=== PATIENT | female | born 1935 | race Asian ===

== ENCOUNTER 2017-09-15 18:49 | Emergency (ER) | payer MEDICARE, OTHER ==
[~2017-09-15] VITALS: Ht 149.9 cm; Wt 40.9 kg
[2017-09-15] MEDS ORDERED: ATROPINE SULFATE 0.1 MG/ML 10 ML SYRINGE IVP ONE (18:51)
[2017-09-15] MEDS ORDERED: SODIUM BICARBONATE [ADULT] 8.4% 50 MEQ/50 ML SYRINGE IVP ONE ×2 (18:51)
[2017-09-15] MEDS ORDERED: EPINEPHrine 1:10,000 [1 MG/10 ML] SYRINGE IVP ONE ×2 (18:51)
[2017-09-15] MEDS ORDERED: ONDANSETRON HCL 4 MG/2 ML VIAL IVP ONE (19:45)
[2017-09-15] MEDS ORDERED: MORPHINE SULFATE 4 MG/ML SYRINGE IVP ONE (19:45)
[2017-09-15] MEDS ORDERED: PIPERACILLIN/TAZO 3.375 GM/D5W 50 ML IV ONE (20:00)
[2017-09-15] MEDS ORDERED: RAPID SEQUENCE KIT [RSI] 1 EACH KIT ONE (20:06)
[2017-09-15] MEDS ORDERED: SUCCINYLCHOLINE CHLORIDE 20 MG/ML 10 ML VIAL ONE (20:06)
[2017-09-15] MEDS ORDERED: NALOXONE HCL 1 MG/ML 2 ML SYG ONE (20:07)
[2017-09-15] MEDS ORDERED: NOREPINEPHRINE 4 MG/D5%-WATER 250 ML IV ONE (20:11)
[2017-09-15 20:16] LABS: RED BLOOD CELL COUNT(AUTO) 1.58 MIL/uL (4.00-5.20)
[2017-09-15 20:17] LABS: PLATELET COUNT (AUTO) 198 K/uL (150-450); RED CELL DISTRIBUTION WIDTH 30.2 % (11.5-14.5)
[2017-09-15] MEDS ORDERED: MIDAZOLAM HCL 2 MG/2 ML VIAL IVP ONE ×3 (20:30→23:45)
[2017-09-15] MEDS ORDERED: NALOXONE HCL 1 MG/ML 2 ML SYG IVP ONE (20:30)
[2017-09-15 20:34] VITALS: BP 147/95
[2017-09-15 20:35] LABS: MEAN CORPUSCULAR VOLUME 49 fL (80-100)
[2017-09-15 20:36] LABS: TROPONIN I 0.16 ng/mL (0.00-0.05)
[2017-09-15] MEDS ORDERED: SODIUM CHLORIDE 0.9% 100 ML ONE (20:43)
[2017-09-15] MEDS ORDERED: IOVERSOL 350 MG/ML 100 ML VIAL ONE (20:43)
[2017-09-15 20:51] LABS: CALCIUM, TOTAL 9.4 mg/dL (8.8-10.5); CHLORIDE 98 mmol/L (98-107); GLUCOSE,RANDOM 79 mg/dL (70-110); POTASSIUM 4.4 mmol/L (3.5-5.1)
[2017-09-15 20:52] LABS: ALBUMIN 0.6 g/dL (3.4-5.0); BAND NEUTROPHILS % (MANUAL) 21 % (0-5); CORRECTED WHITE BLOOD COUNT 20.7 K/uL (4.5-11.0); LYMPHOCYTES % (MANUAL) 23 % (22-44); MONOCYTES % (MANUAL) 7 % (2-9); SEGMENTED NEUTROPHILS % 49 % (40-70); TOTAL PROTEIN, SERUM 8.7 g/dL (6.4-8.2)
[2017-09-15 20:53] LABS: BILIRUBIN,TOTAL 1.5 mg/dL (0.1-1.0)
[2017-09-15 20:55] LABS: SODIUM SERUM 130 mmol/L (136-145)
[2017-09-15 20:58] LABS: PLATELET MORPHOLOGY COMMENT GIANT PLTS PRESENT
[2017-09-15 21:13] LABS: ANION GAP 14 mmol/L (8-16)
[2017-09-15 21:14] LABS: CARBON DIOXIDE 18 mmol/L (22-29); CREATININE 0.63 mg/dL (0.60-1.30); GLOMERULAR FILTR. RATE CALC > 60 mL/min (>60); UREA NITROGEN, BLOOD 35 mg/dL (7-18)
[2017-09-15 21:25] LABS: LIPASE 6059 U/L (73-393)
[2017-09-15] MEDS ORDERED: EPINEPHrine 2 MG in DEXTROSE 5%-WATER 248 ML IV PRN (21:30)
[2017-09-15 21:48] LABS: ALANINE AMINOTRANSFERASE 417 U/L (12-78)
[2017-09-15 21:49] LABS: ASPARTATE AMINOTRANSFERASE 1940 U/L (15-37)
[2017-09-15 22:06] LABS: ALKALINE PHOSPHATASE 585 U/L (46-116)
== END 2017-09-16 00:28 | disposition expired ==
LOC: EMS 18:50
DX: A41.9 Sepsis, unspecified organism (principal); I46.9 Cardiac arrest, cause unspecified; R10.13 Epigastric pain; E11.9 Type 2 diabetes mellitus without complications
CPT/HCPCS: 31500; 36430; 51702; 71045; 80053; 82140; 83605; 83690; 84484; 85025; 86850; 86900; 86901; 86920; 87040; 87077; 87186; 93005; 96365; 96374; 96375; 99291; 99292; J0171; J0330; J0461; J2250; J2270; J2310; J2405; J2543; J3490 ×2; J7050; P9016; Q9967; 94002